=== PATIENT | female | born 1935 | race Caucasian/White ===

== ENCOUNTER 2024-05-10 19:23 | Emergency (ER) | payer OTHER, SELFPAY ==
[2024-05-10 19:37] VITALS: BP 186/97
[2024-05-10] MEDS: NEO-SYNEPHRINE 0.5% NASAL SPRAY 2 SPRAY NASAL (20:24)
--- NOTE | 2024-05-10 20:27 | ED.GENMED ---
History of Present Illness
General
Chief Complaint: Nose Bleed
Source: patient and family
Exam Limitations: none
Time Seen by Provider: 05/10/24 19:53
Nursing documentation reviewed up to this point in time: agreed with
History of Present Illness
History of Present Illness:
Patient with history of paroxysmal atrial fibrillation on Eliquis, presents to ED secondary to intermittent nosebleed x 4 days. Patient was evaluated urgent care center yesterday, where there was no acute bleeding noted. As such, no intervention
offered. Denies headache. Denies dizziness. Denies chest pain. Denies shortness of breath. Patient does report intermittent episodes of nausea and vomiting. Denies recent illness. Denies recent change in medications or diet. Last dose of
Eliquis was taken this morning.
Review of Systems
Review of Systems
Allergies reviewed?: Yes
All Other Systems: ROS reviewed and negative except as documented in HPI and ROS
Constitutional: Reports no symptoms; Denies fever
EENT: Reports no symptoms
Respiratory: Reports no symptoms; Denies cough or trouble breathing
Cardiac: Reports no symptoms
ABD/GI: Reports nausea and vomiting; Denies abdominal pain
Musculoskeletal: Reports no symptoms
Skin: Reports no symptoms
Neurological: Denies dizzy, headache or weakness
Phy Exam
Physical Exam
Physical Exam:
Physical Exam
General: no apparent distress, not acutely ill. afebrile.
Head: nc/at. eomi
Neck: supple. no meningeal signs. normal posterior pharynx. no active bleeding noted
Lungs: no acute respiratory distress. clear bilaterally
Abdomen: normal bowel sounds. not tender
Neuro: alert and oriented. no focal neurological deficits
Skin: no rash
Psychiatric: well kept. interactive and cooperative
Extremities: no edema. no calf tenderness.
Course
Orders/Labs/Results
Orders:
Orders
05/10/24 20:09
Phenylephrine 0.5% Regular Spr [Colin-Synephrine 0.5% Nasal [place]] 1 spray .ROUTE .STK-MED ONE
05/10/24 20:14
Phenylephrine 0.5% Regular Spr [Colin-Synephrine 0.5% Nasal [place]] See Dose Instructions NASAL NOW STA
Vital Signs
Initial and Last Documented VS:
Initial Vital Signs
Pulse BP Pulse Ox
71 186/97 97
05/10/24 19:37 05/10/24 19:37 05/10/24 19:37
Last Documented Vital Signs
Pulse BP Pulse Ox
71 186/97 97
05/10/24 19:37 05/10/24 19:37 05/10/24 19:37
MDM/Problems Addressed
MDM/Problems Addressed:
Patient treated with Colin-Synephrine and compression after initial evaluation, with complete cessation of epistaxis. Patient remains hemodynamically stable. Patient provided with Vaseline and gauze as well as petroleum jelly, to be used until
reevaluation with referred ENT physician.
*Critical Care Note
Total Time (30-74mins, 75-104mins- exclusive of procedures): Not Applicable
ED Attending Note
-
Portions of this chart may have been created with voice recognition software.� Occasional wrong word or��sound alike� substitutions may have occurred due to the inherent limitations of voice recognition software.
Discharge Plan
Departure
Patient Disposition: Home (Routine Discharge)
Date of Disposition: 05/10/24
Time of Disposition: 21:42
Patient with high blood pressure during this ER visit?: Yes
Discharge Problem:
Epistaxis
Instructions: Nosebleeds (DC)
Prescriptions:
No Action
carvedilol 12.5 mg Tablet
12.5 mg PO BID Qty: 60 0RF
Eliquis 5 mg Tablet
5 mg PO BID Qty: 60 1RF
pantoprazole 40 mg Tablet,Delayed Release (Dr/Ec)
40 mg PO DAILY Qty: 14 0RF
lisinopril 5 mg Tablet
5 mg PO DAILY Qty: 30 0RF
Referrals:
She Nino DO [Family Provider] -
Yordan Abreu MD [Active] -
Activity Restrictions/Additional Instructions:
As discussed, please follow-up with referred to ENT physician for reevaluation. In the meantime, recommend withholding Eliquis tonight as well as tomorrow morning, with consideration to resume tomorrow evening, if there is no further episodes of
nosebleed.
Interventions
Interventions:
*Risk Screen - Suicide Last Done: 05/10/24 19:37
*General Assessment Last Done: 05/10/24 19:37
*Neglect/Abuse Screening Last Done: 05/10/24 19:37
ED- Fall Risk Assessment Last Done: 05/10/24 22:02
*Nursing Disposition Last Done: 05/10/24 22:02
ED-EENT Assessment Last Done: 05/10/24 21:58
Discharge Date and Time
Discharge Date/Time: 05/10/24 22:02
Print Language: LAO
== END 2024-05-10 22:02 | disposition home or self-care (01) ==
LOC: EMR 19:23
PROVIDERS: EMERGENCY PHYSICIAN Emergency Medicine; FAMILY PHYSICIAN Hospitalist
DX: R04.0 Epistaxis (principal); I48.0 Paroxysmal atrial fibrillation; Z79.01 Long term (current) use of anticoagulants
CPT/HCPCS: 99282